=== PATIENT | male | born 1975 | race Caucasian/White ===

== ENCOUNTER 2023-03-08 13:35 | Inpatient (IN) | payer OTHER ==
[2023-03-08 14:47] VITALS: BMI 28.5
[2023-03-08] MEDS ORDERED: cloNIDine HCL 0.1 MG TABLET PO ONE (15:00)
[2023-03-08] MEDS ORDERED: BISMUTH SUBSALICYLATE 524 MG/30 ML PO PRN (15:15)
[2023-03-08] MEDS ORDERED: ACETAMINOPHEN 325 MG TABLET (FP) PO PRN (15:15)
[2023-03-08] MEDS ORDERED: MAG HYDROX/AL HYDROX/SIMETH 30 ML UNIT-DOSE CUP PO PRN (15:15)
[2023-03-08] MEDS ORDERED: BENZOCAINE/MENTHOL (CHLORASEPTIC ) LOZENGE MM PRN (15:15)
[2023-03-08] MEDS ORDERED: LOPERAMIDE HCL 2 MG CAPSULE PO PRN (15:15)
[2023-03-08] MEDS ORDERED: P-EPHED 60MG/TRIPROLIDI 2.5MG TABLET PO PRN (15:15)
[2023-03-08] MEDS ORDERED: POLYETHYLENE GLYCOL (HEALTHYLAX) 3350 17 GM PACKET PO PRN (15:15)
[2023-03-08] MEDS ORDERED: BENZONATATE 200 MG CAPSULE PO PRN (15:15)
[2023-03-08] MEDS ORDERED: IBUPROFEN 400 MG TABLET (FP) PO PRN (15:15)
[2023-03-08] MEDS ORDERED: DICYCLOMINE HCL 10 MG CAPSULE PO PRN (15:15)
[2023-03-08] MEDS ORDERED: ONDANSETRON *ODT* 4 MG TABLET SL PRN (15:15)
[2023-03-08] MEDS ORDERED: IBUPROFEN 600 MG TABLET (FP) PO PRN (15:15)
[2023-03-08] MEDS ORDERED: MAGNESIUM HYDROX 2400MG/30ML ORAL SUSPENSION 30 ML CUP PO PRN (15:15)
[2023-03-08] MEDS ORDERED: guaiFENesin 600 MG TABLET.ER (FP) PO PRN (15:15)
[2023-03-08] MEDS ORDERED: chlordiazePOXIDE HCL 25 MG CAPSULE PO PRN (15:17)
[2023-03-08] MEDS ORDERED: cloNIDine HCL 0.1 MG TABLET ONE (15:29)
[2023-03-08] MEDS ORDERED: chlordiazePOXIDE HCL 25 MG CAPSULE ONE (16:39)
[2023-03-08] MEDS ORDERED: hydrOXYzine PAMOATE 25 MG CAPSULE (FP) PO ONE (16:40)
[2023-03-08] MEDS: chlordiazePOXIDE HCL 25 MG CAPSULE PO SCH ×2 (16:43→22:15)
[2023-03-08] MEDS ORDERED: AMMONIUM LACTATE 12% LOTION 225 GM BOTTLE TP PRN (17:26)
[2023-03-08] MEDS: MELATONIN 5 MG TABLETS PO SCH (22:14)
[2023-03-08] MEDS: GABAPENTIN 400 MG CAPSULE PO SCH (22:14)
[2023-03-08] MEDS: THIAMINE HCL 100 MG TABLET (FP) PO SCH (22:14)
[2023-03-08] MEDS: levETIRAcetam 500 MG TABLET (FP) PO SCH (22:15)
[2023-03-09] MEDS: chlordiazePOXIDE HCL 25 MG CAPSULE PO SCH ×4 (05:13→22:19)
[2023-03-09] MEDS: GABAPENTIN 400 MG CAPSULE PO SCH ×3 (05:14→22:19)
[2023-03-09] MEDS: NICOTINE 7 MG/24 HOURS TOPICAL PATCH TD SCH (09:24)
[2023-03-09] MEDS: PRENATAL VITAMINS W/ FOLIC ACID TABLET (FP) PO SCH (09:24)
[2023-03-09] MEDS: LOSARTAN POTASSIUM 50 MG TABLET PO SCH (09:25)
[2023-03-09] MEDS: HYDROCHLOROTHIAZIDE 12.5 MG CAPSULE (FP) PO SCH (09:25)
[2023-03-09] MEDS: levETIRAcetam 500 MG TABLET (FP) PO SCH ×2 (09:25→22:19)
[2023-03-09] MEDS: amLODIPine BESYLATE 10 MG TABLET (FP) PO SCH (09:25)
[2023-03-09 09:45] LABS: HEMATOCRIT 40.7 % (35.4-49); HEMOGLOBIN 13.9 GM/dL (11.7-16.9); MCH 34.4 pg (25.7-33.7); MCHC 34.2 g/dl (32.0-35.9); MEAN CELL VOLUME 100.7 fl (80-96); MEAN PLT VOLUME 6.8 fl (7.5-11.1); PLATELET COUNT 251 10^3/uL (134-434); RBC 4.04 M/mm3 (4.00-5.60); WHITE BLOOD COUNT 6.4 K/mm3 (4.0-10.0)
[2023-03-09] MEDS ORDERED: PATIENT'S OWN MEDICATION (NON-FORMULARY) (Losartan/Hydrochlorothiazide [Losartan-Hctz 100- PO SCH (10:00)
[2023-03-09 10:44] LABS: CHLORIDE 104 mmol/L (98-107); POTASSIUM 3.9 mmol/L (3.5-5.1); SODIUM 140 mmol/L (136-145)
[2023-03-09 10:46] LABS: CALCIUM 9.5 mg/dL (8.5-10.1)
[2023-03-09 10:47] LABS: ALBUMIN 3.5 g/dl (3.4-5.0); ANION GAP 6 mmol/L (4-13); BLOOD UREA NITROGEN 14.8 mg/dL (7-18); CO2 30 mmol/L (21-32); GLUCOSE,RANDOM 95 mg/dL (74-106)
[2023-03-09 10:49] LABS: SGPT/ALT 56 U/L (13-61)
[2023-03-09 10:50] LABS: CREATININE 1.2 mg/dL (0.55-1.3); SGOT/AST 49 U/L (15-37)
[2023-03-09 10:51] LABS: BILIRUBIN,TOTAL 1.5 mg/dL (0.2-1); TOT PROT 7.4 g/dl (6.4-8.2)
[2023-03-09 10:52] LABS: ALK PHOS 52 U/L (45-117)
[2023-03-09] MEDS: risperiDONE 1 MG TABLET PO SCH (22:19)
[2023-03-09] MEDS: THIAMINE HCL 100 MG TABLET (FP) PO SCH (22:19)
[2023-03-09] MEDS: MELATONIN 5 MG TABLETS PO SCH (22:19)
[2023-03-10] MEDS: GABAPENTIN 400 MG CAPSULE PO SCH ×3 (05:48→22:07)
[2023-03-10] MEDS: chlordiazePOXIDE HCL 25 MG CAPSULE PO SCH ×4 (05:48→22:07)
[2023-03-10] MEDS: levETIRAcetam 500 MG TABLET (FP) PO SCH ×2 (10:23→22:07)
[2023-03-10] MEDS: SERTRALINE HCL 50 MG TABLET (FP) PO SCH (10:23)
[2023-03-10] MEDS: PRENATAL VITAMINS W/ FOLIC ACID TABLET (FP) PO SCH (10:23)
[2023-03-10] MEDS: risperiDONE 0.5 MG TABLET PO SCH (10:23)
[2023-03-10] MEDS: NICOTINE 7 MG/24 HOURS TOPICAL PATCH TD SCH (10:23)
[2023-03-10] MEDS: LOSARTAN POTASSIUM 50 MG TABLET PO SCH (10:23)
[2023-03-10] MEDS: HYDROCHLOROTHIAZIDE 12.5 MG CAPSULE (FP) PO SCH (10:23)
[2023-03-10] MEDS: amLODIPine BESYLATE 10 MG TABLET (FP) PO SCH (10:23)
[2023-03-10] MEDS: risperiDONE 1 MG TABLET PO SCH (22:07)
[2023-03-10] MEDS: THIAMINE HCL 100 MG TABLET (FP) PO SCH (22:07)
[2023-03-10] MEDS: MELATONIN 5 MG TABLETS PO SCH (22:07)
[2023-03-11] MEDS ORDERED: chlordiazePOXIDE HCL 10 MG CAPSULE PO PRN
[2023-03-11] MEDS: chlordiazePOXIDE HCL 10 MG CAPSULE PO SCH ×2 (05:27→10:11)
[2023-03-11] MEDS: GABAPENTIN 400 MG CAPSULE PO SCH ×2 (05:27→13:03)
[2023-03-11] MEDS: levETIRAcetam 500 MG TABLET (FP) PO SCH ×2 (10:11→22:04)
[2023-03-11] MEDS: PRENATAL VITAMINS W/ FOLIC ACID TABLET (FP) PO SCH (10:11)
[2023-03-11] MEDS: amLODIPine BESYLATE 10 MG TABLET (FP) PO SCH (10:11)
[2023-03-11] MEDS: HYDROCHLOROTHIAZIDE 12.5 MG CAPSULE (FP) PO SCH (10:11)
[2023-03-11] MEDS: SERTRALINE HCL 50 MG TABLET (FP) PO SCH (10:11)
[2023-03-11] MEDS: risperiDONE 0.5 MG TABLET PO SCH ×2 (10:11→22:04)
[2023-03-11] MEDS: LOSARTAN POTASSIUM 50 MG TABLET PO SCH (10:11)
[2023-03-11] MEDS: NICOTINE 7 MG/24 HOURS TOPICAL PATCH TD SCH (10:12)
[2023-03-11] MEDS ORDERED: GABAPENTIN 400 MG CAPSULE PO ONE (12:37)
[2023-03-11] MEDS: LORazepam 1 MG TABLET PO PRN (14:08)
[2023-03-11] MEDS: LORazepam 1 MG TABLET PO SCH ×2 (17:40→22:04)
[2023-03-11] MEDS: MELATONIN 5 MG TABLETS PO SCH (22:04)
[2023-03-11] MEDS: THIAMINE HCL 100 MG TABLET (FP) PO SCH (22:04)
[2023-03-11] MEDS: METHOCARBAMOL 500 MG TABLET PO PRN (22:04)
[2023-03-11] MEDS: GABAPENTIN 300 MG CAPSULE PO SCH (22:05)
[2023-03-12] MEDS ORDERED: chlordiazePOXIDE HCL 10 MG CAPSULE PO SCH (05:00)
[2023-03-12] MEDS: LORazepam 0.5 MG TABLET PO SCH ×4 (05:34→22:33)
[2023-03-12] MEDS: GABAPENTIN 300 MG CAPSULE PO SCH ×3 (05:35→22:02)
[2023-03-12] MEDS: risperiDONE 0.5 MG TABLET PO SCH ×2 (10:16→22:34)
[2023-03-12] MEDS: amLODIPine BESYLATE 10 MG TABLET (FP) PO SCH (10:17)
[2023-03-12] MEDS: HYDROCHLOROTHIAZIDE 12.5 MG CAPSULE (FP) PO SCH (10:17)
[2023-03-12] MEDS: LOSARTAN POTASSIUM 50 MG TABLET PO SCH (10:18)
[2023-03-12] MEDS: SERTRALINE HCL 50 MG TABLET (FP) PO SCH (10:18)
[2023-03-12] MEDS: NICOTINE 7 MG/24 HOURS TOPICAL PATCH TD SCH (10:18)
[2023-03-12] MEDS: PRENATAL VITAMINS W/ FOLIC ACID TABLET (FP) PO SCH (10:18)
[2023-03-12 10:49] LABS: POTASSIUM 3.8 mmol/L (3.5-5.1)
[2023-03-12 10:50] LABS: CALCIUM 9.9 mg/dL (8.5-10.1)
[2023-03-12 10:51] LABS: BLOOD UREA NITROGEN 16.1 mg/dL (7-18)
[2023-03-12 10:54] LABS: CREATININE 1.2 mg/dL (0.55-1.3)
[2023-03-12] MEDS: LORazepam 1 MG TABLET PO PRN ×2 (13:46→20:22)
[2023-03-12] MEDS: THIAMINE HCL 100 MG TABLET (FP) PO SCH (22:02)
[2023-03-12] MEDS: MELATONIN 5 MG TABLETS PO SCH (22:03)
[2023-03-12] MEDS: METHOCARBAMOL 500 MG TABLET PO PRN (22:04)
[2023-03-13] MEDS ORDERED: LORazepam 0.5 MG TABLET PO ONE (05:00)
[2023-03-13] MEDS ORDERED: chlordiazePOXIDE HCL 10 MG CAPSULE PO ONE (05:00)
[2023-03-13] MEDS: GABAPENTIN 300 MG CAPSULE PO SCH (05:27)
[2023-03-13] MEDS: amLODIPine BESYLATE 10 MG TABLET (FP) PO SCH (09:32)
[2023-03-13] MEDS: LOSARTAN POTASSIUM 50 MG TABLET PO SCH (09:32)
[2023-03-13] MEDS: HYDROCHLOROTHIAZIDE 12.5 MG CAPSULE (FP) PO SCH (09:32)
[2023-03-13] MEDS: PRENATAL VITAMINS W/ FOLIC ACID TABLET (FP) PO SCH (09:33)
[2023-03-13] MEDS: NICOTINE 7 MG/24 HOURS TOPICAL PATCH TD SCH (09:33)
[2023-03-13] MEDS: SERTRALINE HCL 50 MG TABLET (FP) PO SCH (09:34)
[2023-03-13] MEDS: risperiDONE 0.5 MG TABLET PO SCH (09:34)
[2023-03-13 09:47] VITALS: BP 149/95; PULSE 93; RESP 18; TEMP 97.3
[2023-03-14] MEDS ORDERED: LORazepam 0.5 MG TABLET PO PRN
== END 2023-03-13 10:22 | disposition home or self-care (01) | DRG 775 ==
LOC: YASAS 13:35 → Y3N 16:58
PROVIDERS: ADMIT Allergy & Immunology; ATTEND Psychiatry & Neurology Pain Medicine
PROC: HZ2ZZZZ Detoxification Services for Substance Abuse Treatment (ICD-10-PCS; principal; 2023-03-08)
DX: F10.230 Alcohol dependence with withdrawal, uncomplicated (principal); F12.20 Cannabis dependence, uncomplicated; F17.290 Nicotine dependence, other tobacco product, uncomplicated; F25.9 Schizoaffective disorder, unspecified; F32.A Depression, unspecified; G40.909 Epilepsy, unspecified, not intractable, without status epilepticus
CPT/HCPCS: 36415; 80048; 80053; 80307; 82140; 85027; 86780; 87635